=== PATIENT | male | born 1965 | race Caucasian/White ===

== ENCOUNTER 2018-09-09 09:05 | Day surgery (SDC) | payer OTHER, SELFPAY ==
[2018-09-09] VITALS (7 sets, daily range): BP systolic 165–179; BP diastolic 91–109; PULSE 94–101; RESP 17–23; TEMP 36.8–37.1; O2SAT 92–99
--- NOTE | 2018-09-09 09:20 | W.ED.GENAD ---
Discharge Plan Disposition Patient Disposition: [facility] INPATIENT Condition: Stable Discharge Details Chief Complaint: ThroatFB Reason For Visit: FOB Attending Provider: Thu Taylor Primary Care Provider: None,None ED Provider: Austin Galdamez Home Meds and New Rx's Prescriptions: No Action No Known Home Meds RF: 0 Medical Decision Making This is a pleasant 52-year-old male with no past medical history except for alcohol use who presents today for esophageal impaction symptoms. He had a similar episode to this when he was a young child. Currently he states that for the last 20 hours he has had this after taking a large bite of venison yesterday. He has no associated chest pain or shortness of breath. He denies any diarrhea. He is unable to tolerate any solid foods, and liquids are immediately coughed and spit back up. He is in no acute respiratory distress otherwise though. Was given 1 mg of glucagon, and 1 L of normal saline. He has had no resolution of his symptoms. I discussed the case with Dr. Taylor, and she agrees with the need for EGD. However unfortunately there are no same-day surgery beds available, and the OR is currently full. The patient will remain in the ER until surgical evaluation and management. Of note the patient's laboratory work-up did come back showing an elevated hemoglobin, most likely suggestive of hemochromatosis. He will require close follow-up on an outpatient basis for this. 12:06 PM The patient will be taken to the OR for further surgical management by Dr. Taylor. The patient is still not tolerating p.o. and his symptoms continue. He remained stable here in the ED. I have extensively reviewed the treatment plan with the patient. I have addressed all patient concerns at this time. I have also discussed the plan with the admitting physician and they agree with the current assessment and plan and have agreed to assume responsibility for the patient. All parties demonstrate verbal understanding and agreement with our assessment and plan at this time. Diagnosis impacted foreign body HPI General Date/Time Provider Initiated Documentation: 09/09/18 09:15. HPI Narrative: This is a pleasant 52-year-old male with no past medical history who takes no medications who presents today for evaluation of esophageal impaction. Patient states that yesterday at 2 PM he had a very large piece of deer venison, had difficulty swallowing and then felt like it got stuck. He feels like it stuck in his epigastric region. He has had no food since then, and every bit of fluid he immediately spits and cost back up. He denies any chest pain, abdominal pain, shortness of breath, numbness tingling or weakness. He denies any hematemesis or diarrhea. He denies any other complaints. He does drink a sixpack of beer nightly, and did have some alcohol this weekend. He denies any history of esophageal varices. He has no other complaints at this time. No other modifying factors. Related Data Home Medications Medication Instructions Recorded Confirmed Unknown [No Known Home Meds] 09/09/18 09/09/18 Allergies Allergy/AdvReac Type Severity Reaction Status Date / Time No Known Allergies Allergy Unverified 09/09/18 09:15 General Stated Complaint: ThroatFB SOPHIE: 3 Review of Systems Review of Systems All systems reviewed & are unremarkable except as noted in HPI and below PFSH Social History Smoking/Tobacco Use Status: Current every day Tobacco Type: cigarettes Smoking packs per day: 1 Alcohol Intake: current Alcohol Intake frequency: 3 or more drinks per day Alcohol type: beer Details: six pack of beer per night and more on weekends Drug use: Never Substance use type: does not use Do you feel safe at home: Yes Do you feel safe in your relationship?: Yes Exam Narrative Exam Narrative: 1.Const: Well-nourished, Well-developed, appearing stated age 2.Eyes: PERRL, no conjunctival injection, and symmetrical lids. 3.ENT: Atraumatic external nose and ears. Moist MM. Neck: Symmetric, trachea midline, No thyromegaly. 4.CVS: +S1/S2, No murmurs or gallops. Peripheral pulses 2+ and equal in all extremities. Brisk capillary refill in all extremities. 5.RESP: Unlabored respiratory effort. Clear to auscultation bilaterally. No wheezes rales or rhonchi 6.GI: Soft, Nontender/Nondistended, No hepatosplenomegaly. No guarding or rebound. 7.MSK: Normocephalic/Atraumatic, Extremities w/o deformity or ttp No cyanosis or clubbing, Normal movement of all extremities 8.Skin: Warm, Dry. No rashes or lesions. 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 Sensation grossly intact, no focal neurologic deficits. 10.Psych: (AAO) x3. Appropriate mood and affect Course Vital Signs Temperature 37.1 C 09/09/18 09:12 Pulse 97 H 09/09/18 09:12 Respiratory Rate 20 09/09/18 09:12 Blood Pressure 166/94 H 09/09/18 09:12 Pulse Oximetry 99 09/09/18 09:12 Temperature 37.1 C 09/09/18 09:12 Temperature Source Temporal Artery Scan 09/09/18 09:12 Pulse 97 H 09/09/18 09:12 Respiratory Rate 20 09/09/18 09:12 Respiratory Effort Non-Labored 09/09/18 09:12 Blood Pressure 166/94 H 09/09/18 09:12 Blood Pressure Position Sitting 09/09/18 09:12 Pulse Oximetry 99 09/09/18 09:12 Oxygen Delivery Method Room Air 09/09/18 09:12 Oxygen Flow Rate 0 09/09/18 09:12 Pain Level 0 09/09/18 09:12
[2018-09-09] MEDS: Normal Saline 1,000 ML 1000 ML IV (09:38)
[2018-09-09 09:40] LABS: Abs Immature Grans 0.02 k/cumm (0.0-0.09); Absolute Basophil Count 0.06 k/cumm (0.0-0.2); Absolute Eosinophil Count 0.01 k/cumm (0.0-0.7); Absolute Lymphocyte Count 1.88 k/cumm (1.2-3.4); Absolute Monocyte Count 0.83 k/cumm (0.11-0.7); Absolute Neutrophil Count 8.24 k/cumm (1.2-6.7); Basophils % 0.5; Eosinophils % 0.1; Immature Grans % 0.2; Mean Corpuscular Hemoglobin 34.2 pg (27.0-33.0); Mean Corpuscular Volume 97.5 fL (80-95); Mean Platelet Volume 10.4 fL (8.0-11.0); Monocytes % 7.5; Neutrophils % 74.7; Platelet Count 291 x1000/uL (130-400); RBC 6.03 m/cumm (4.50-6.00); RBC Distribution Width 13.7 % (11.8-14.1); White Blood Cell Count 11.03 k/cumm (4.4-10.8)
[2018-09-09 09:50] LABS: ALT 45 U/L (12-78); AST 30 U/L (15-37); Albumin 4.5 g/dL (3.4-5.0); Alkaline Phosphatase 95 U/L (46-116); Anion Gap 13.9 mmol/L (3-11); BUN 8 mg/dL (7-18); Bilirubin, Total 1.4 mg/dL (0.2-1.0); CO2 26.1 mmol/L (21.0-32.0); CREATININE 0.94 mg/dL (0.70-1.30); Calcium 9.4 mg/dL (8.5-10.1); Chloride 101 mmol/L (98-107); Glucose 117 mg/dL (70-100); HCT 58.8 % (40.0-50.0); HGB 20.6 g/dL (13.5-17.5); Lipase 79 U/L (73-393); Potassium 3.7 mmol/L (3.5-5.1); Sodium 141 mmol/L (136-145); Total Protein 8.8 g/dL (6.4-8.2)
--- NOTE | 2018-09-09 10:55 | W.SURGCON ---
Date of service: 09/09/18 Time of Service: 10:55 Assessment and Plan (1) Impacted esophageal foreign body: Current visit: Yes Status: Acute P\\ EGD under General anesthesia with intubation to protect his airway Risks, benefits and complications have been reviewed. Complications include but are not limited to bleeding, pain, perforation, sore throat, aspiration, and adverse reaction to the medications. Questions were entertained and answered to their satisfaction and they wished to proceed. No guarantees were given or implied. Qualifiers: Encounter type: initial encounter Qualified Code(s): T18.108A - Unspecified foreign body in esophagus causing other injury, initial encounter History of Present Illness Chief Complaint: Foreign body in esophagus Narrative: Mr. Vaz is a pleasant 52 year old male who came to the ED after not being able to swallow anything since lunch yesterday. He had venison and it got stuck. He tried to wait and see if it would pass on its own, but didn't. He denies any medical issues. Workup in the ED does show a high Hgb/Hct. No history of myelodysplastic issues. He denies chest pain or SOB. He does drink a six pack of beer daily and more on the weekends. he also smokes 1 ppd. Consults Consult date: 09/09/18 Requesting physician: Austin Galdamez Review of Systems Constitutional Denies fever(s), Denies headache(s) and Denies increased appetite ENT Reports dysphagia and Denies headache(s) Cardiovascular Denies chest pain, Denies chest pain at rest, Denies irregular heart rhythm, Denies claudication, Denies palpitations, Denies dyspnea and Denies dyspnea on exertion Respiratory Denies dyspnea and Denies dyspnea on exertion Gastrointestinal Reports as per HPI and Reports dysphagia Neurologic Denies headache(s) Endocrine Denies palpitations PFS Social History Smoking/Tobacco Use Status: Current every day Tobacco Type: cigarettes Smoking packs per day: 1 Alcohol Intake: current Alcohol Intake frequency: 3 or more drinks per day Alcohol type: beer Details: six pack of beer per night and more on weekends Drug use: Never Substance use type: does not use Do you feel safe at home: Yes Do you feel safe in your relationship?: Yes Exam HENMT Head: normocephalic and atraumatic Resp Effort & Inspection: normal respiratory effort Auscultation: clear to auscultation bilaterally Cardio Rate: regular rate Rhythm: regular rhythm Heart Sounds: no gallops, no murmurs and no rubs GI Inspection: normal to inspection Palpation: soft and nontender Results Last Vital Signs Temp 98.8 F 09/09/18 09:12 Pulse 97 H 09/09/18 09:12 Resp 20 09/09/18 09:12 BP 166/94 H 09/09/18 09:12 Pulse Ox 99 09/09/18 09:12 Labs : 09/09/18 09:25 09/09/18 09:25 Laboratory Results - last 24 hr 09/09/18 09/09/18 09:25 09:25 WBC 11.03 H RBC 6.03 H Hgb 20.6 H* Hct 58.8 H* MCV 97.5 H MCH 34.2 H MCHC 35.0 RDW 13.7 Plt Count 291 MPV 10.4 Immature Gran % 0.2 Neutrophils % 74.7 Lymphocytes % 17.0 Monocytes % 7.5 Eosinophils % 0.1 Basophils % 0.5 Absolute Neutrophils 8.24 H Absolute Lymphocytes 1.88 Absolute Monocytes 0.83 H Absolute Eosinophils 0.01 Absolute Basophils 0.06 Sodium 141 Potassium 3.7 Chloride 101 Carbon Dioxide 26.1 Anion Gap 13.9 H BUN 8 Creatinine 0.94 Estimated GFR/1.73 m2 >= 60.00 Glucose 117 H Calcium 9.4 Total Bilirubin 1.4 H AST 30 ALT 45 Alkaline Phosphatase 95 Total Protein 8.8 H Albumin 4.5 Lipase 79
[2018-09-09 13:38] LABS: Abs Immature Grans 0.03 k/cumm (0.0-0.09); Absolute Basophil Count 0.04 k/cumm (0.0-0.2); Absolute Eosinophil Count 0.01 k/cumm (0.0-0.7); Absolute Monocyte Count 0.66 k/cumm (0.11-0.7); Absolute Neutrophil Count 11.08 k/cumm (1.2-6.7); Basophils % 0.3; Eosinophils % 0.1; HCT 54.5 % (40.0-50.0); HGB 18.8 g/dL (13.5-17.5); Immature Grans % 0.2; Lymphocytes % 10.6; Mean Corp. HGB Concentration 34.5 g/dL (32.0-36.0); Mean Corpuscular Hemoglobin 33.9 pg (27.0-33.0); Mean Corpuscular Volume 98.2 fL (80-95); Mean Platelet Volume 10.4 fL (8.0-11.0); Neutrophils % 83.8; Platelet Count 240 x1000/uL (130-400); RBC 5.55 m/cumm (4.50-6.00); RBC Distribution Width 13.6 % (11.8-14.1); White Blood Cell Count 13.22 k/cumm (4.4-10.8)
[2018-09-09] MEDS: Lactated Ringers 1,000 ML 80 ML IV ×2 (14:16→15:00)
--- NOTE | 2018-09-09 15:05 | BOWEL_PTH ---
PATIENT: AVIS GARCIA LOC: [facility] U#:[id number] AGE/SX: 52/M ROOM: RE09/09/[address]: Thu Taylor MD : 1965 BED: DIS: 09/09/2018 SPEC #: [id number] RECD: 09/09/18 17:18 STATUS: YUE REManda #: [id number] KENYON: 09/09/18 15:[address]: Thu Taylor DEPT: Surgical Specimen RECD BY: Hina Ballesteros ENTERED: 09/09/18 17:19 SP TYPE: Bowel OTHR DR: None Tissues: 1 - BIOPSY BOWEL 2 - STOMACH BIOPSY 3 - STOMACH BIOPSY 4 - ESOPHAGUS BIOPSY 5 - ESOPHAGUS BIOPSY Procedures: GROSS AND MICRO LEVEL 4 SPECIAL STAIN 1 Comments: [id number]
--- NOTE | 2018-09-09 15:45 | ENDO_ITS ---
Date of service: 09/09/18 Time of Service: 15:01 Endoscopy Report DATE OF PROCEDURE: 09/09/18 PRE-OP DIAGNOSIS: Esophageal foreign body POST-OP DIAGNOSIS: same (and severe PUD) PROCEDURE: EGD with removal of foreign body and biopsies SURGEON: Thu Taylor ANESTHESIA: GETA (Zeinab Thompson CRNA) ESTIMATED BLOOD LOSS: 5 PATHOLOGY: other (Duodenal ulcer Bx, gastric ulcer bx, antrum bx, GE junction bx, distal esophagus bx) COMPLICATIONS: Other (difficult intubation (please se anesthesia record)) DISPOSITION: PACU INDICATIONS: Mr. Vaz is a pleasant 52 year old male who was eating some venison yesterday at around 2 pm when he felt it get stuck. He tried drinking carbonated drinks and when he still could swallow his secretions he came to the ED. He was given some glucagon without results. EGD was recommended. Risks, benefits and complications have been reviewed. Complications include but are not limited to bleeding, pain, perforation, sore throat, aspiration, and adverse reaction to the medications. Questions were entertained and answered to their satisfaction and they wished to proceed. No guarantees were given or implied. PROCEDURE START TIME: 15:01 PROCEDURE END TIME: 15:13 FINDINGS: Severe inflammation of the duodenum, stomach and esophagus. Ulcerations in the 1st portion of the duodenum, the pylorus and antrum. Old blood within the stomach. Ulcerations and inflammation in the distal esophagus. NO varices and no masses. PROCEDURE DESCRIPTION: After informed consent was obtained the patient was take to the procedure room and placed in a supine position. Monitors were applied and a time out was done. The patients name, date of , procedure type, allergies to medications and metal in their body was reviewed. The patient was placed under general anesthesia and intubation was attempted with a glide scope without success. After a couple of tries, the patient was woken up and he was the intubated while awake. Please see anesthesia records. During intubation one of his front teeth was knocked out. His front teeth were all very loose. Once intubated the gastroscope was advanced through the oropharynx which was grossly normal into the distal esophagus. The proximal and mid-esophagus were normal. In the distal esophagus there was a lot of inflammation noted as well as ulcers. No varices were noted. The food bolus was identified at the GE junction and gently pushed into the stomach. The scope was advanced into the stomach and through the pylorus into the 3rd portion of the duodenum. The 2nd and 3rd portion of the duodenum revealed mild inflammation. In the 1st portion of the duodenum there were ulcers noted. Biopsies were done of the ulcers. The scope was retracted back into the stomach and biopsies were done of the antrum to rule out H. pylori. There was one large ulcer at the pylorus which was biopsied. The scope was retro-flexed. The cardia and fundus were noted to be inflamed. There was old blood noted. There was no hiatal hernia noted. The scope was retracted back into the esophagus and biopsies were done of the GE junction to rule out Oglesby's. The Z line was irregular. The GE junction was at 40 cm. Biopsies of the distal esophagus were done. The scope was removed and the patient was woken up and taken back to [facility] in stable condition. Follow up: 2-3 weeks in the office Needs a PCP to see him and to follow up on his polycythemia (this may just be from dehydration, but it should be rechecked at some point) Needs info on resources to stop drinking
--- NOTE | 2018-09-09 16:08 | W.PM.DSUDISC ---
Discharge Plan Disposition Patient Disposition: HOME Condition: Stable Discharge Details Chief Complaint: ThroatFB Reason For Visit: FOB Attending Provider: Thu Taylor Primary Care Provider: None,None ED Provider: Thu Taylor Home Meds and New Rx's Prescriptions: New omeprazole 40 mg capsule,delayed release(DR/EC) 40 mg PO BID Qty: 60 RF: 3 Discharge Instructions Instructions: Peptic Ulcer (DC), Gastritis (DC), Diet for Stomach Ulcers and Gastritis (GEN), Esophagitis (DC), Duodenitis (DC) Additional Instructions: Findings: Severe inflammation of the stomach, small bowel and esophagus Multiple ulcers and old blood Follow up: 09/24/18 at 1:15 pm Other: Please stop drinking Medication: Omperazole 40 mg 2 x a day Please call if you develop: fevers >101.5 Nausea or Vomiting Abdominal pain that is not transient DAY SURGERY UNIT POST COLONOSCOPY INSTRUCTIONS 1. Because there will be medication in your system for the next 24 hours, you may feel a little sleepy. Your coordination will be affected. Therefore: a. Do not drive or operate dangerous equipment for 24 hours. b. Do not drink alcohol beverages for 24 hours (not even beer). c. Plan to go home and rest for the day. 2. Generally there are no restrictions on your activity after a day or so has gone by, but you may feel a bit fatigued for a few days. 3 After you arrive home you may have a light meal and return to a normal diet as you can tolerate it without feeling sick to your stomach. 4. After surgery, you may feel pain or discomfort. This should be only transient, but if it persists please contact your doctor. 5. If there are any questions regarding the findings of your procedure, please feel free to contact your doctor. 6. If you are unable to contact your doctor with a problem, contact the hospital at [phone]. 7. Continue all your regular medications unless directed otherwise. I understand the above instructions and have no questions. Signature of Patient or Responsible Adult Escort Date/Time Name of Responsible Adult Escort Signature of Nurse Date/Time Stand Alone Forms: Maranda Chew (DSU) Referrals: Thu Taylor MD [Emergency Provider] - 09/24/18 1:15 pm Activity:: Activity as Tolerated Diet:: low acid diet Discharge Orders Discharge Orders: Discharge Order (Routine); Ordered 09/09/18 Ordered By: Thu Taylor DS: Diagnosis Discharge Diagnosis (1) Impacted esophageal foreign body: Status: Acute (2) Peptic ulcer disease: Status: Chronic (3) H/O esophagogastroduodenoscopy: Status: Chronic
--- NOTE | 2018-09-10 08:31 | PDOC.CMPRO ---
Care Management Progress Note 09/10-Dr. Monsalve requested assistance with establishing care and f/u as soon as possible for multiple medical problems. 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 Referral faxed to [facility] this am.
--- NOTE | 2018-09-10 08:33 | CMPROGNOTE_ITS ---
Care Management Progress Note 09/10-Dr. Monsalve requested assistance with establishing care and f/u as soon as possible for multiple medical problems. 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 Referral faxed to [facility] this am.
== END 2018-09-09 16:55 | disposition home or self-care (01) ==
LOC: ER 11:01 → SUR 11:05 → ER 12:58 → SUR 12:59
PROVIDERS: Student in an Organized Health Care Education/Training Program; Emergency Provider Surgery; Visit Provider Surgery
PROC: 0DJ68ZZ Inspection of Stomach, Via Natural or Artificial Opening Endoscopic (ICD-10-PCS; CPT 43235; principal; 2018-09-09 14:30)
DX: T18.108A Unspecified foreign body in esophagus causing other injury, initial encounter (principal); K91.81 Other intraoperative complications of digestive system; K08.89 Other specified disorders of teeth and supporting structures; Y83.8 Other surgical procedures as the cause of abnormal reaction of the patient, or of later complication, without mention of misadventure at the time of the procedure; Y70.8 Miscellaneous anesthesiology devices associated with adverse incidents, not elsewhere classified; Y92.234 Operating room of hospital as the place of occurrence of the external cause; K29.70 Gastritis, unspecified, without bleeding; B96.81 Helicobacter pylori [H. pylori] as the cause of diseases classified elsewhere; K22.10 Ulcer of esophagus without bleeding; K25.9 Gastric ulcer, unspecified as acute or chronic, without hemorrhage or perforation; K29.80 Duodenitis without bleeding; K21.0 Gastro-esophageal reflux disease with esophagitis; F10.10 Alcohol abuse, uncomplicated; F17.210 Nicotine dependence, cigarettes, uncomplicated
CPT/HCPCS: 43247; 43239; 36415; 80053; 83690; 88305; 96361; 96374; 99252; 99285; 85025; 88312; 99284; J1100; J1610; J2250; J3010